=== PATIENT | male | born 1945 | race Caucasian/White ===

== ENCOUNTER 2016-05-14 08:45 | Inpatient (IN) | payer MEDICARE, OTHER ==
[~2016-05-14] VITALS: Ht 170.2 cm; Wt 118.0 kg
[~2016-05-14 08:45] MED LIST: ASPIR-LOW81 MG PO; ASPIRIN 32325 MG/TAB PO; BENEFIBER PO; BETAPACE AF120 MG PO; CALTRATE 600 +1 TAB PO; CARDURA 2MG2 MG PO; CEPHALEXIN500 M1 PO; COLACE 100100 MG/CAP PO; COUMADIN 77.5 MG/TAB PO; COZAAR100 MG PO; FERREX PO; FLECANIDE PO; FLOMAX 0.40.4 MG/CAP PO; IRON325 MG PO; KLONOPIN 1MG1 MG PO; LASIX 20MG TABL20 MG PO; LEXAPRO 10MG10 MG PO; LEXAPRO20 MG PO; LISINOPRIL10 MG PO; MIRAPEX 1MG PO; MUCINEX 60600 MG/TA1 PO; MULTI VITAMINS1 TAB PO; MVI PO; NIACIN 250250 MG/CAP PO; PROSCAR 5MG5 MG PO; PROSCAR PO; SINGULAIR 110 MG/TAB PO; TAZTIA PO; TOPROL XL50 MG PO; UNABLE TO ASSESS; VESICARE 5MG5 MG PO; VIAGRA100 M1 PO; VITAMIN B12 PO; VTAMINC250TA PO; WELLBUTRIN SR150 M1 PO; XARELTO10 MG PO; ZEBETA 5MG5 MG PO; [UNRECOGNIZED DRUG - OTHER] PO
[2016-10-11] VITALS (9 sets, daily range): BP systolic 116–151; BP diastolic 49–76; PULSE 60–78; TEMP 98.3
[2016-10-11] MEDS ORDERED: VESICARE10 MG PO (08:37)
[2016-10-11] MEDS ORDERED: SINGULAIR 110 MG/TAB PO (08:38)
[2016-10-11] MEDS ORDERED: NORVASC 10MG10 MG PO (08:38)
[2016-10-12 03:06] VITALS: BP 149/62; PULSE 62; TEMP 98.3
[2016-10-12 05:44] LABS: HEMATOCRIT 39.4 % (42.0-52.0); HEMOGLOBIN 13.3 g/dl (13.5-18.0)
[2016-10-12 07:14] VITALS: BP 163/67; PULSE 59; TEMP 97.7
[2016-10-12 11:42] VITALS: BP 174/62; PULSE 59; TEMP 98.2
[2016-10-12 15:39] VITALS: BP 174/71; PULSE 60; TEMP 98.4
[2016-10-12 20:23] VITALS: BP 179/84; BP 192/83; PULSE 71; TEMP 99.1
[2016-10-13 00:12] VITALS: BP 177/72; PULSE 69; TEMP 98.2
[2016-10-13 04:53] VITALS: BP 177/69; PULSE 74; TEMP 97.5
[2016-10-13] MEDS ORDERED: LUTEIN 15 MG-0.1 SGL PO (06:42)
[2016-10-13] MEDS ORDERED: NAMENDA XR 28MG PO (06:43)
[2016-10-13 07:20] LABS: HEMATOCRIT 40.8 % (42.0-52.0); HEMOGLOBIN 13.9 g/dl (13.5-18.0)
[2016-10-13 07:45] VITALS: BP 153/62; PULSE 71; TEMP 97.8
[2016-10-13 08:00] VITALS: BP 153/62; PULSE 71; TEMP 97.8
[2016-10-13 11:23] VITALS: BP 162/66; PULSE 64; TEMP 98
[2016-10-13] MEDS ORDERED: NORCO 325 MG-7.1 TAB PO (12:31)
[2016-10-13] MEDS ORDERED: ROXICODONE 55 MG/TAB PO (12:32)
== END 2016-10-13 14:30 | disposition home or self-care (01) | DRG 470 ==
LOC: JCC 07-07 07:30
PROVIDERS: Orthopaedic Surgery
PROC: 0SRD0J9 Replacement of Left Knee Joint with Synthetic Substitute, Cemented, Open Approach (ICD-10-PCS; principal; 2016-10-11 14:00)
DX: M17.12 Unilateral primary osteoarthritis, left knee (principal); I10 Essential (primary) hypertension; D51.0 Vitamin B12 deficiency anemia due to intrinsic factor deficiency; Z95.0 Presence of cardiac pacemaker; Z98.84 Bariatric surgery status
CPT/HCPCS: A9284; C1713; C1776; J0690; J2250; J2274; J2310; J2704; J3010; J7042; J7120

== ENCOUNTER → 2017-06-23 | Outpatient (CLI) | payer MEDICARE, OTHER ==
[~2017-06-23] MED LIST changes: +LUTEIN 15 MG-0.1 SGL PO; +NAMENDA XR 28MG PO; +NORCO 325 MG-7.1 TAB PO; +NORVASC 10MG10 MG PO; +ROXICODONE 55 MG/TAB PO; +VESICARE10 MG PO
== END ==
LOC: BHSO 10:54
DX: F33.1 Major depressive disorder, recurrent, moderate (principal)
CPT/HCPCS: 90791-AI

== ENCOUNTER → 2017-08-18 | Outpatient (CLI) | payer MEDICARE, OTHER | LOC: BHSO 10:55 | DX: F33.41 Major depressive disorder, recurrent, in partial remission (principal) ==

== ENCOUNTER → 2017-10-31 | Outpatient (CLI) | payer MEDICARE, OTHER | LOC: BHSO 14:40 | DX: F33.1 Major depressive disorder, recurrent, moderate (principal) | CPT/HCPCS: G0463 ==

== ENCOUNTER → 2018-03-16 | Outpatient (CLI) | payer MEDICARE, OTHER | LOC: BHSO 10:39 | DX: F33.42 Major depressive disorder, recurrent, in full remission (principal) | CPT/HCPCS: G0463 ==

== ENCOUNTER → 2018-09-19 | Outpatient (CLI) | payer MEDICARE, OTHER | LOC: BHSO 10:54 | DX: F33.42 Major depressive disorder, recurrent, in full remission (principal) | CPT/HCPCS: G0463 ==

== ENCOUNTER → 2019-03-28 | Outpatient (CLI) | payer MEDICARE, OTHER | LOC: BHSO 09:59 | DX: F33.42 Major depressive disorder, recurrent, in full remission (principal) | CPT/HCPCS: G0463 ==

== ENCOUNTER → 2019-10-31 | Outpatient (CLI) | payer MEDICARE, OTHER | LOC: BHSO 10:34 | DX: F33.42 Major depressive disorder, recurrent, in full remission (principal) | CPT/HCPCS: G0463 ==

== ENCOUNTER → 2020-04-23 | Outpatient (CLI) | payer MEDICARE, OTHER | LOC: BHSO 13:41 | DX: F33.42 Major depressive disorder, recurrent, in full remission (principal) | CPT/HCPCS: G0463 ==